=== PATIENT | female | born 2005 | race Hispanic/Latino ===

== ENCOUNTER 2023-05-30 21:14 | Emergency (ER) | payer OTHER, SELFPAY ==
[2023-05-30 21:57] VITALS: BP 128/78; PULSE 78; RESP 15; TEMP 36.8; O2SAT 100
== END 2023-05-30 22:00 | disposition left against medical advice (07) ==
DX: Z53.21 Procedure and treatment not carried out due to patient leaving prior to being seen by health care provider (principal)
CPT/HCPCS: 99199

== ENCOUNTER 2024-03-06 16:51 | Emergency (ER) | payer OTHER, SELFPAY ==
--- NOTE | 2024-03-06 17:06 | ED.FEMALEGU ---
HPI - Female Genitourinary General Stated complaint: urinary issue Time Seen by Provider: 03/06/24 16:58 Source: patient and RN notes reviewed Mode of arrival: ambulatory Limitations: no limitations History of Present Illness HPI Narrative: 18 y/o () female presented for c/o mid lower abdominal cramping for about 2 weeks. Pt is 18 weeks gestation. Pain is sharp and intermittent, can last a few minutes. Unrelieved with walking or laying down. States she contacted her OB today who advised evaluation, but she had to wait until she left work. Pt has not noticed movement yet. Pt denies vaginal bleeding, hematuria, vomiting, flank pain, constipation, diarrhea, fevers or chills. Reports last US was 01/2024. Related Data Allergies Allergy/AdvReac Type Severity Reaction Status Date / Time No Known Allergies Allergy Verified 05/30/23 21:59 Review of Systems Review of Systems: CONSTITUTIONAL: Denies body aches, fever, chills, or sweats. CARDIOVASCULAR: Denies chest pain, palpitations, or edema. RESPIRATORY: Denies cough or dyspnea. GASTROINTESTINAL: Denies abdominal pain, nausea, vomiting, or diarrhea. GENITOURINARY: reports mid lower abdominal cramping in ; denies dysuria, frequency, urgency, hematuria, flank pain SKIN: Denies rash, itching, or wounds. MUSCULOSKELETAL: Denies back pain or myalgia. PMFSH Comments At time of signature, I have reviewed and agree with nursing past medical, surgical, social and family history unless otherwise noted. Please see nursing chart for further information. There is no relevant family history pertinent to the presenting complaint Exam Narrative: GENERAL: Well-appearing and in no acute distress. ENT: Mucous membranes pink and moist. CHEST: No respiratory distress. Clear to auscultation. HEART: Regular rate and rhythm. ABDOMEN: Soft, nontender, nondistended, gravid normal active bowel sounds. heart tones 130. SKIN: Warm, dry NEURO: No focal deficits. Alert and oriented x3. Gait steady. PSYCH: Normal affect. Course Course Emergency Course: Patient is aware of diagnosis, understands and agrees to treatment plan. Anticipatory guidance given. Patient agrees to follow-up as directed and is aware of reasons to seek care at the emergency department. Portions of this record may have been created with voice recognition software Level of Care: Express Care Visit Vital Signs Vital signs: Reviewed Transfer Transfered to: [facility] Transportation: Other ( Private vehicle) Transfer rationale: Pt is agreeable to transfer. Requests transfer to [facility] via private vehicle. Risks of transportation reviewed with pt including injury, worsening of condition and . v/u. Report called to hospital, spoke with Sarai Hall PA-C, accepting physician. Pt is in stable condition at time of transfer. Advised to remain NPO and go directly to the hospital. MDM - Female Genitourinary MDM Narrative Medical decision making narrative: Pt 18weeks gestation with mid lower abdominal cramping; FHT noted at 130. Urine dip unremarkable. pt advised ER transfer. Differential Diagnosis Differential diagnosis: Likely urinary tract infection, vaginitis, cystitis and other (threatened ) Discharge Plan Discharge Clinical Impression: Abdominal pain during Qualifiers: Trimester: second trimester Qualified Code(s): O26.892 - Other specified related conditions, second trimester Patient Disposition: Acute Care Hospital Condition: Stable Instructions: Antibiotic Form Follow-up/Referrals: PHYSICIAN,GUEST RELATIONS AGENT [Primary Care Provider] - Time of Disposition: 17:30
[2024-03-06 17:08] VITALS: BP 97/81; PULSE 77; RESP 16; TEMP 37.2; O2SAT 99
== END 2024-03-06 17:34 | disposition short-term general hospital (02) ==
PROVIDERS: Emergency Provider Nurse Practitioner Family
DX: O26.892 Other specified pregnancy related conditions, second trimester (principal); Z3A.18 18 weeks gestation of pregnancy; R10.30 Lower abdominal pain, unspecified
CPT/HCPCS: 81003; 99212; G0463

== ENCOUNTER 2024-03-06 18:13 | Emergency (ER) | payer OTHER, SELFPAY ==
[2024-03-06 18:24] VITALS: BP 107/64; PULSE 72; RESP 20; TEMP 36.3; O2SAT 98
[2024-03-06 18:48] LABS: Basophils Percent Auto 0.4 % (0.2-1.2); Eosinophils Absolute Auto 0.1 K/mm3 (0-0.3); Eosinophils Percent Auto 1.6 % (0-4.4); Hematocrit 29.5 % (37.0-47.0); Hemoglobin 10.2 g/dL (12.0-15.0); Immature Granulocyte Absolute 0.03 K/mm3 (0.00-0.031); Immature Granulocyte Percent A 0.4 % (0-0.5); Lymphocytes Absolute Auto 1.93 K/mm3 (0.9-3.2); Lymphocytes Percent Auto 23.6 % (18.3-44.2); Mean Corpuscular HGB Conc 34.6 g/dl (32-36); Mean Corpuscular Hemoglobin 32.1 pg (26-34); Mean Corpuscular Volume 92.8 fl (80-100); Mean Platelet Volume 9.6 fl (7.4-10.4); Monocytes Absolute Auto 0.4 K/mm3 (0.1-0.6); Monocytes Percent Auto 4.9 % (2.6-8.5); Neutrophils Absolute Auto 5.7 K/mm3 (1.3-6.7); Neutrophils Percent Auto 69.1 % (45.5-73.1); Platelet Count Result 266 k/mm3 (150-375); Red Blood Count 3.18 M/mm3 (4.2-5.4); Red Cell Distribution Width 12.2 % (11.5-14.5); White Blood Count 8.2 K/mm3 (4.5-10.0)
[2024-03-06 19:02] LABS: Appearance Urine Clear (Clear); Bilirubin Urine Negative (Negative); Blood Urine Negative (Negative); Color Urine Yellow (Yellow); Glucose Urine UA Negative (Negative); Ketones Urine Negative (Negative); Leukocyte Esterase Ur Negative LEU/UL (Negative); Nitrate Urine Negative (Negative); Protein Urine Negative (Negative); Urobilinogen Urine 0.2 mg/dL (<2.0); pH Urine 6.5 (5.0-9.0)
[2024-03-06 19:03] LABS: Add Urine Microscopic? NO; Alanine Aminotransferase 12 U/L (6-35); Albumin Level 3.8 g/dL (3.5-5.1); Alkaline Phosphatase 64 U/L (38-126); Anion Gap 9 mmol/L (4-12); Aspartate Amino Transferase 21 U/L (14-36); Bilirubin,Total 0.3 mg/dL (0.2-1.3); Blood Urea Nitrogen 4 mg/dL (7-17); Calcium 8.8 mg/dL (8.4-10.2); Carbon Dioxide 22 mmol/L (22-30); Chloride 106 mmol/L (98-107); Estimated CRCL calculation 169 ml/min; Estimated Glomerular Filt Rate > 60; Glucose 79 mg/dL (65-110); Lipase 63 U/L (23-300); Potassium 3.4 mmol/L (3.4-5.0); Sodium 137 mmol/L (137-145)
[2024-03-06] MEDS: SODIUM CHLORIDE 0.9% IV 1,000 ML 999 ML IV CONT (19:59)
[2024-03-06] MEDS: ACETAMINOPHEN 500 MG TABLET 1000 MG PO (20:04)
--- NOTE | 2024-03-06 20:11 | ED.ABDPAIN ---
HPI - Abdominal Pain General Chief Complaint: Abdominal Pain Stated Complaint: abd Time Seen by Provider: 03/06/24 19:37 Source: patient Mode of arrival: ambulatory Limitations: no limitations History of Present Illness HPI narrative: This is a 18-year-old female, about 18 weeks , that presents to the emergency department for lower abdominal/pelvic pain. Ongoing over the last 2 weeks. Reports the pain is intermittent and sharp in nature. She has not been taking anything for pain. She feels better when she is up and moving around. Denies any associated symptoms. No vaginal bleeding. Denies fevers, vomiting, diarrhea, dysuria, or hematuria. Related Data Allergies Allergy/AdvReac Type Severity Reaction Status Date / Time No Known Allergies Allergy Verified 03/06/24 18:28 Review of Systems Review of Systems: CONSTITUTIONAL: Denies fever GASTROINTESTINAL: Reports abdominal pain. Denies nausea, vomiting, or diarrhea. GENITOURINARY: Denies dysuria or hematuria. All systems reviewed & are unremarkable except as noted in HPI and below PMFSH Past Medical History Medical History (Updated 03/06/24 @ 20:26 by Mary Carroll PA-C) No active medical problems Social History Social History (Updated 03/06/24 @ 20:26 by Mary Carroll PA-C) Smoking status: Never smoker Exam Narrative: GENERAL: Well-appearing, well-nourished, and in no acute distress. HEAD: Normocephalic, atraumatic. EYES: EOMI. CHEST: Clear to auscultation. No respiratory distress. No wheezes rales or rhonchi HEART: Regular rate and rhythm. No murmur heard. Normal peripheral pulses. ABDOMEN: Gravid, nontender, nondistended, normal active bowel sounds. EXTREMITIES: Normal range of motion. No edema. SKIN: Warm, dry, no rash. NEURO: No focal deficits. Alert and oriented x3. PSYCH: Normal mood and affect Procedures Other Procedure Procedure 1: Other Procedure: Bedside ultrasound show a activity with appropriate cardiac motion Course Course Emergency Course: patient updated on her workup and agrees with plan of care Consultations Consultation #1: Spoke with patient's OB about her presentation and workup. Agrees with further outpatient follow-up Date: 03/06/24 Vital Signs Vital signs: Vital Signs Temperature 97.4 F L 03/06/24 18:24 Pulse Rate 72 03/06/24 18:24 Respiratory Rate 20 03/06/24 18:24 Blood Pressure 107/64 03/06/24 18:24 Pulse Oximetry 98 03/06/24 18:24 Temperature 97.4 F L 03/06/24 18:24 Pulse Rate 72 03/06/24 18:24 Respiratory Rate 20 03/06/24 18:24 Blood Pressure 107/64 03/06/24 18:24 Pulse Oximetry 98 03/06/24 18:24 MDM - Abdominal Pain MDM Narrative Medical decision making narrative: patient presents to the emergency department for lower abdominal pain. Ongoing over the last couple of weeks. Currently 18 weeks with her 1st . She has had routine OB follow-up. She is afebrile and nontoxic appearing. Her vitals are stable. Cbc without leukocytosis. Shows normocytic anemia hemoglobin of 10.2. Metabolic panel and lipase without concerning findings. UA without evidence of infection. Bedside ultrasound show a activity with appropriate cardiac motion. Spoke with patient's OB about her presentation and workup. Agrees with further outpatient follow-up. Instructed to take Tylenol as needed for pain. She was given warnings to return to the ER Differential Diagnosis Differential diagnosis: Likely constipation and other (round ligament pain, UTI) Lab Data Attestation: I reviewed the patient's lab results. 03/06/24 18:36 03/06/24 18:36 Labs: Lab Results 03/06/24 Range/Units 18:36 WBC 8.2 (4.5-10.0) K/mm3 RBC 3.18 L (4.2-5.4) M/mm3 Hgb 10.2 L (12.0-15.0) g/dL Hct 29.5 L (37.0-47.0) % MCV 92.8 (80-100) fl MCH 32.1 (26-34) pg MCHC 34.6 (32-36) g/dl RDW 12.2 (11.5-14.5)
== END 2024-03-06 21:17 | disposition home or self-care (01) ==
PROVIDERS: Emergency Medicine; Emergency Provider Physician Assistant; PCP Obstetrics & Gynecology
DX: O99.012 Anemia complicating pregnancy, second trimester (principal); D64.9 Anemia, unspecified; O26.892 Other specified pregnancy related conditions, second trimester; R10.2 Pelvic and perineal pain; Z3A.18 18 weeks gestation of pregnancy
CPT/HCPCS: 36415; 80053; 81003; 81025; 83690; 84702; 85025; 96360; 99283; A9270; J7030

== ENCOUNTER 2024-08-03 22:05 | Inpatient (IN) | payer OTHER, SELFPAY ==
[2024-08-04] VITALS (143 sets, daily range): BP systolic 95–136; BP diastolic 47–85; PULSE 66–130; RESP 16–18; TEMP 36.4–37.9; O2SAT 96–100; BMI 33.6
[2024-08-04 00:52] LABS: Basophils Percent Auto 0.3 % (0.2-1.2); Eosinophils Absolute Auto 0.1 K/mm3 (0-0.3); Eosinophils Percent Auto 0.6 % (0-4.4); Hematocrit 35.2 % (37.0-47.0); Hemoglobin 12.3 g/dL (12.0-15.0); Immature Granulocyte Absolute 0.06 K/mm3 (0.00-0.031); Immature Granulocyte Percent A 0.4 % (0-0.5); Lymphocytes Absolute Auto 1.52 K/mm3 (0.9-3.2); Lymphocytes Percent Auto 11.3 % (18.3-44.2); Mean Corpuscular HGB Conc 34.9 g/dl (32-36); Mean Corpuscular Hemoglobin 31.1 pg (26-34); Mean Corpuscular Volume 88.9 fl (80-100); Mean Platelet Volume 10.4 fl (7.4-10.4); Monocytes Absolute Auto 0.6 K/mm3 (0.1-0.6); Monocytes Percent Auto 4.3 % (2.6-8.5); Neutrophils Absolute Auto 11.2 K/mm3 (1.3-6.7); Neutrophils Percent Auto 83.1 % (45.5-73.1); Platelet Count Result 283 k/mm3 (150-375); Red Blood Count 3.96 M/mm3 (4.2-5.4); Red Cell Distribution Width 12.7 % (11.5-14.5); White Blood Count 13.5 K/mm3 (4.5-10.0)
[2024-08-04 01:29] LABS: Rapid Plasma Reagin Non-Reactive (NonReactive)
--- NOTE | 2024-08-04 02:13 | LDADM ---
This patient, Neeru Pino, was admitted to Labor/Delivery/Recovery 105 on 08/03/24 at 22:05. Plans for labor, pain management and were discussed with patient. Patient/family oriented to hospital policies and general routines including ID bracelet, bed and alarms, visiting hours, pain management, procedures, bathroom and other care routines, personal items, smoking policy, room service/diet and guest tray routines, security routines, and visiting hours. Patient/Family are encouraged to report perceived risks to care and to ask questions if they do not understand what they are told or what they should do. See OBIX for further documentation.
[2024-08-04 02:15] LABS: HIV 1/2 Ab P24 Ag Result Negative (Negative)
[2024-08-04] MEDS: LACTATED RINGERS 1,000 ML 125 ML IV CONT ×2 (02:56→10:01)
--- NOTE | 2024-08-04 05:05 | WPDANESEPP ---
Anes - Eval Pre Procedure Procedure: Labor epidural Date/Time: 08/04/24 05:05 Surgeon: Rob Preop Diagnosis: Abdominal pain with contractions Pre Op Diagnosis: contractions Patient Data Age: 18 Gender: F Height: 1.6 m Weight: 86.2 kg Last Vital Signs Temp 98.7 F 08/04/24 02:52 Pulse 100 08/04/24 04:11 BP 123/76 08/04/24 04:11 Allergies Allergy/AdvReac Type Severity Reaction Status Date / Time No Known Allergies Allergy Verified 08/04/24 01:32 Home Medications Medication Instructions Recorded Confirmed Type vit no.95-ferrous 1 tablet PO DAILY 08/04/24 08/04/24 History fumarate 28 mg-folic acid 800 mcg tablet () Laboratory Tests 08/04/24 00:46 WBC 13.5 H K/mm3 (4.5-10.0) RBC 3.96 L M/mm3 (4.2-5.4) Hgb 12.3 g/dL (12.0-15.0) Hct 35.2 L % (37.0-47.0) MCV 88.9 fl (80-100) MCH 31.1 pg (26-34) MCHC 34.9 g/dl (32-36) RDW 12.7 % (11.5-14.5) Plt Count 283 k/mm3 (150-375) MPV 10.4 fl (7.4-10.4) Immature Gran % (Auto) 0.4 % (0-0.5) Neut % (Auto) 83.1 H % (45.5-73.1) Lymph % (Auto) 11.3 L % (18.3-44.2) Snyder % (Auto) 4.3 % (2.6-8.5) Eos % (Auto) 0.6 % (0-4.4) Baso % (Auto) 0.3 % (0.2-1.2) Lymph # (Auto) 1.52 K/mm3 (0.9-3.2) Snyder # (Auto) 0.6 K/mm3 (0.1-0.6) Eos # (Auto) 0.1 K/mm3 (0-0.3) Baso # (Auto) 0.0 K/mm3 (0.0-0.1) Abs Immat Gran (auto) 0.06 H K/mm3 (0.00-0.031) Absolute Neuts (auto) 11.2 H K/mm3 (1.3-6.7) Absolute Nucleated RBC 0.000 K/mm3 (0.0-0.012) Nucleated RBC % 0.0 % (0.0-0.2) RPR Non-reactive (NonReactive) HIV 1&2 Ab/P24 Ag 4thGn Negative (Negative) Blood Type O Positive Antibody Screen Negative : gestational age HCG: positive Patient hx anesthesia problems: none Family hx anesthesia problems: none Results Review: All pre-operative results and documents have been reviewed as part of the pre-operative evaluation. [facility] Past Medical History Medical History (Updated 08/04/24 @ 05:05 by Kris Sierra Jr., CRNA) No active medical problems Obesity Family History Family History Other No pertinent family history Social History Social History Smoking status: Never smoker Second hand tobacco smoke exposure: No Substance use: never Do You Feel Safe in your Home?: Yes Lack of Transportation: No Lack of Food: Never True Current Housing: I Have Housing Concerned About Future Housing: No Difficulty Paying Gas/Electric Bills: No Difficulty Paying for Meds: No Currently Unemployed: No Education: High School Diploma/GED Difficulty w/ Childcare or Family Care: No Spiritual care concerns: No Exam Day of Procedure 08/04/24 05:05 Patient weight: obese Lungs: clear to auscultation Neurological: alert and oriented
[2024-08-04] MEDS: OXYTOCIN 30 UNITS/NS 500 ML 30 UNITS/500 ML BAG IV CONT (08:09)
--- NOTE | 2024-08-04 08:25 | WPDOBADMIT ---
Obstetrics - Admit Note Admission Note: record reviewed. No pertinent additions to the history and/or any subsequent changes in the physical findings that are not consistent with the expected course of the were found. Additions to the history and/or subsequent changes in the physical findings follow. admit in labor, SVE 7/100/-1 AROM moderate amount of clear, odorless fluid, anticipate vaginal delivery
--- NOTE | 2024-08-04 11:51 | PM.OBPRVD ---
OB - Vaginal Delivery Note Procedure Delivery date: 08/04/24 Induction method: None Delivery augmentation: Rupture of Membranes Delivery monitor: External FHT and Internal Uterine Route of delivery: Episiotomy description: None Laceration Description: Perineal - 1st Degree Delivery repair: vicryl Specimen: Yes Quantitative Blood Loss (ml): 100 Anesthesia type: Epidural Disposition: Floor Complications: No immediate complications Baby Date of : 08/04/24 Time of : 11:35 Gestational Age by Date: 39 gender: Female Weight (pounds): 5 Weight (ounces): 15 presentation: vertex position: Left Occiput Anterior Placenta delivery description: Spontaneous Cord Vessel Description: 3 Vessels, Clamped/Cut and Delayed Cord Clamping score one minute: 9 score five minutes: 9 Narrative: mother and baby skin to skin in stable condition
[2024-08-04] MEDS: ceFAZolin 2 GM/D5W 50 ML 2 GM/50 ML BAG IVPB (12:01)
[2024-08-04] MEDS: OXYTOCIN 30 UNITS/NS 500 ML 30 UNITS/500 ML BAG 125 UNITS IV CONT (12:01)
[2024-08-04] MEDS: ACETAMINOPHEN 325 MG TABLET 650 MG PO (13:12)
[2024-08-04] MEDS: WITCH HAZEL 40 PADS 1 PAD TOPICAL (13:13)
[2024-08-04] MEDS: BENZOCAINE 20% AER SPR (*SP) 56 GM CAN 1 SPRAY TOPICAL (13:13)
[2024-08-04] MEDS: IBUPROFEN 600 MG TABLET PO (13:13)
--- NOTE | 2024-08-04 14:03 | PC.NURSE ---
Patient transferred to post room #290 via wheelchair. Support person present. Oriented to unit, room, information board, rooming in, admission packet and security measures. Patient verbalizes understanding.
[2024-08-05] MEDS: BENZOCAINE/MENTHOL (*BKC) 18 EA LOZENGE 1 LOZENGE PO (03:32)
[2024-08-05] MEDS: IBUPROFEN 600 MG TABLET PO ×4 (04:36→22:13)
[2024-08-05 04:46] VITALS: BP 100/65; PULSE 88; RESP 18; TEMP 36.5
[2024-08-05 04:48] LABS: Hematocrit 28.4 % (37.0-47.0); Hemoglobin 9.8 g/dL (12.0-15.0)
[2024-08-05 06:30] VITALS: BP 100/69; PULSE 76; RESP 18; TEMP 36.4
--- NOTE | 2024-08-05 09:04 | PM.OBPNVD ---
OB - PN: Subj Subjective Date/time seen: 08/05/24 09:04 Patient comments: no complaints, pain well controlled, incisional pain, tolerating diet and flatus present OB - PN: Obj Data Labs 08/05/24 04:28 Labs: Laboratory Results - last 24 hr 08/05/24 04:28 Hgb 9.8 L Hct 28.4 L OB - PN A/P Plan day: 1 Plan: routine care Comments: No problems, routine care Time Spent With Patient Time: Total time spent is greater than 50% in coordination of care (as documented) at patient's floor/unit and/or counseling patient: Exam Const: General: comfortable, no acute distress and alert Resp: Effort & Inspection: normal respiratory effort Auscultation: no crackles, no rales and no rhonchi Cardio: Rate: regular rate Heart sounds: no click, no murmurs and no rubs GI: Inspection: non-distended GI Palp: No Tenderness to palpation present (GI) Auscultation: normal bowel sounds Other: Incision - CDI Extrem: General: normal to inspection, no pedal edema and no calf tenderness
[2024-08-05] MEDS: DOCUSATE SODIUM 100 MG CAPSULE PO ×2 (10:18→17:16)
[2024-08-05] MEDS: POLYSACCHARIDE IRON COMPLEX 150 MG CAPSULE PO ×2 (10:18→17:15)
[2024-08-05 19:53] VITALS: BP 114/67; PULSE 79; RESP 18; TEMP 36.9; O2SAT 100
[2024-08-05] MEDS: ACETAMINOPHEN 325 MG TABLET 650 MG PO (22:13)
[2024-08-06] MEDS: IBUPROFEN 600 MG TABLET PO (04:01)
[2024-08-06] MEDS: ACETAMINOPHEN 325 MG TABLET 650 MG PO (04:01)
[2024-08-06 07:35] VITALS: BP 109/72; PULSE 72; RESP 18; TEMP 36.4; O2SAT 99
--- NOTE | 2024-08-06 08:08 | PM.OBPNVD ---
OB - PN: Subj Subjective Date/time seen: 08/06/24 08:08 Interval history: pp day 2 doing well desires d/c home OB - PN: Obj Data Labs 08/05/24 04:28 OB - PN A/P Plan day: 2 Plan: routine care and discharge home Time Spent With Patient Time: Total time spent is greater than 50% in coordination of care (as documented) at patient's floor/unit and/or counseling patient: Review of Systems Review of Systems: All systems reviewed & are unremarkable except as noted in HPI and below Exam Const: General: cooperative, healthy appearing and comfortable Resp: Effort & Inspection: normal respiratory effort Cardio: Rate: regular rate Skin: General skin exam: normal color Neuro: General: patient oriented x3
--- NOTE | 2024-08-06 08:09 | P.DS_ITS ---
DS: Admitting Diagnosis Discharge Date 08/06/24 Admitting Diagnosis labor DS: Discharge Diagnosis Discharge Diagnosis (1) Vaginal delivery: Code(s): O80 - Encounter for full-term uncomplicated delivery Status: Acute OB - DS: Summary OB Procedures : None OB Procedures Intrapartum: Spontaneous Vag Delivery OB Procedures: : None Peripartum Data Laceration Description: Perineal - 1st Degree Episiotomy description: None Time Spent with Patient Time attestation: Total time spent providing and/or coordinating discharge services: DS: Data Data Completed and Pending Pending studies at discharge: Pending at discharge 08/04/24 12:06 Surgical [PTH] Routine Discharge Plan Discharge Attending physician on discharge: Alhaji Rivas Discharging Clinician: Ivory Collins Patient Disposition: Home, Self-Care Activity: pelvic rest Diet: regular Patient Instructions: Antibiotic Form Stand Alone Forms: General Discharge Information Follow-up/Referrals: Ivory Collins, CNM [Certified Nurse Auditor Medical Claims] - 4 Weeks Discharge Medications: New ibuprofen 600 mg Tablet 600 mg PO Q6H PRN (Reason: Cramping) Qty: 30 0RF Continued PNV cmb#95-ferrous fumarate-FA [] 28 mg iron- 800 mcg Tablet 1 tablet PO DAILY Date of admission: 08/03/24 22:05 Primary Care Provider: Barrera Maravilla Admitting Provider: Alhaji Rivas Attending physician on admission: Ivory Collins Condition: Stable
--- NOTE | 2024-08-06 08:47 | PC.NURSE ---
[id number] Previously mother had expressed that she only wanted to bottle feed formula but has changed her mind and would like to use a breast pump and bottle feed both pumped breast milk and/or formula. Mother has her own breast pump at home that her insurance paid for and wishes to use it when she goes home later this morning. Instructions were given on cleaning, care, usage, that there should be no pain, pumping schedule for milk production, collection, and storage of human milk. Patient was assessed for correct placement, flange size (both nipples measured 20mm), to pump for comfort and nipple stretching/stimulation for adequate milk production every 3 hours (8 times in 24 hours) 1-2 times at night. Parents are encouraged to record the pumping schedule on the feeding sheet.?Mother voiced understanding of the education shared along with mom/baby guide and the pump measurement, flange fit handout for additional resource information (Handouts included: Pumping Primer, Common Issues, Breast Milk Storage Guidelines and How to keep your Breast Pump Clean). RN encouraged mother to read through her instructions for her breast pump that she has at home and to make sure she has the proper flange size. [facility] referral faxed to [place] [facility]. Reported to the Primary RN.
[2024-08-06] MEDS: POLYSACCHARIDE IRON COMPLEX 150 MG CAPSULE PO ×2 (08:59)
[2024-08-06] MEDS: INFLUENZA TRIVALENT VACCINE 45 MCG/0.5 ML SYRINGE IM (10:50)
[2024-08-07 10:26] VITALS: BP 102/66; PULSE 89; RESP 18; TEMP 36.8; O2SAT 100
--- NOTE | 2024-08-07 10:45 | PC.NURSE ---
Follow up RN called regarding patient needing assistance with her breast pump. She has a Motif pump and she was sanitizing it this morning. She was missing some pieces and didn't bring her user manual. We were able to find enough pieces to put together one full side. Reviewed with mother the settings, how to use the massage mode until the milk flows and then to switch to the expression mode. Advised she pump regularly (at feeding times) for about 15 minutes. She feels full like her milk is in but has not been or pumping. Encouraged consistency for maximal milk production. Reinforced the supply and demand nature of breast milk production. Patient verbalized understanding and will reference her user manual for additional resource. Encouraged patient to call the office for additional questions or appointment needs. Patient agrees and will call if needed.
== END 2024-08-06 11:56 | disposition home or self-care (01) | DRG 560 ==
LOC: ANHLDR 08-04 01:05 → ANHOB2 08-06 08:09 → ANHLDR 08-08 10:31 → ANHOB2 08-08 10:31
PROVIDERS: Advanced Practice Midwife; Admitting Provider Obstetrics & Gynecology; PCP Obstetrics & Gynecology; Visit Provider Obstetrics & Gynecology
DX: O70.0 First degree perineal laceration during delivery (principal); Z37.0 Single live birth; Z3A.39 39 weeks gestation of pregnancy; Z23 Encounter for immunization
CPT/HCPCS: 36415; 85014; 85018; 85025; 86592; 86703; 86850; 86900; 86901; 88307; 90471; 90656; A9270; G0008; G0432; J0690; J2590; J2795; J7120

== ENCOUNTER 2024-09-16 19:54 | Emergency (ER) | payer SELFPAY ==
[2024-09-16 20:03] VITALS: BP 113/61; PULSE 103; RESP 16; TEMP 36.1; O2SAT 99
--- NOTE | 2024-09-16 20:03 | ED.FEMALEGU ---
HPI - Female Genitourinary General Chief complaint: Urogenital-Female Stated complaint: uti symptoms Source: patient, RN notes reviewed and old records reviewed Mode of arrival: ambulatory Limitations: no limitations History of Present Illness HPI Narrative: Patient is 6 weeks presents with complaints of painful lesions to the genitals. She reports that she noted yesterday. Reports pain is more intense with urination. She voices no other concerns or complaints today Related Data Home Medications ?Medication ?Instructions ?Recorded ?Confirmed ?Last Taken ?Type vit no.95-ferrous 1 tablet PO DAILY 08/04/24 09/16/24 08/03/24 History fumarate 28 mg-folic acid 800 mcg 1 tablet tablet () ferrous sulfate 325 mg (65 mg 325 mg PO DAILY 09/16/24 09/16/24 Unknown History iron) tablet (FeroSul) metronidazole 500 mg tablet 500 mg PO Q12H 09/16/24 09/16/24 Unknown History Allergies Allergy/AdvReac Type Severity Reaction Status Date / Time No Known Allergies Allergy Verified 09/16/24 19:55 Review of Systems Review of Systems: All systems reviewed & are unremarkable except as noted in HPI and below Constitutional: Constitutional: Reports no additional constitutional complaints ENT: Reports system reviewed and no additional complaints, except as documented Cardiovascular: Cardiovascular: Reports no additional cardiovascular complaints Respiratory: Respiratory: Reports no additional respiratory complaints Gastrointestinal: Gastrointestinal: Reports no additional gastrointestinal complaints Genitourinary: Genitourinary: Reports no additional female genitourinary complaints, Reports as per HPI, Reports genital lesions and Reports other [facility] Past Medical History Medical History (Updated 09/17/24 @ 00:00 by Severiano Romero) Obesity No active medical problems Family History Family History Other No pertinent family history Social History Social History Smoking status: Never smoker Second hand tobacco smoke exposure: No Substance use: never Do You Feel Safe in your Home?: Yes Lack of Transportation: No Lack of Food: Never True Current Housing: I Have Housing Concerned About Future Housing: No Difficulty Paying Gas/Electric Bills: No Difficulty Paying for Meds: No Currently Unemployed: No Education: High School Diploma/GED Difficulty w/ Childcare or Family Care: No Spiritual care concerns: No Comments At the time of my signature, I reviewed and agree with the nursing past medical, surgical, social, and family history. There is no relevant family history pertinent to the patient complaint. Exam Const: General: cooperative, no acute distress, alert and awake Orientation/consciousness: oriented to person, oriented to place and oriented to time HENMT: Head: normal to inspection Resp: Effort & Inspection: normal respiratory effort and able to speak in complete sentences Auscultation: clear to auscultation bilaterally, no crackles, no rales, no rhonchi and no wheezes Cardio: Palpation: normal PMI Rate: regular rate Rhythm: regular rhythm Heart sounds: S1 normal heart sound present and S2 normal heart sound present : External Female Exam: lesion (Multiple vesicles) Neuro: General: oriented to person, oriented to place and oriented to time Cranial nerves: Yes CN's II-XII intact bilaterally Psych: Appearance: grossly normal Thought process: Normal thought process present Insight: Good insight present (Psych) Judgement: Good judgement present (Psych) Course Course Level of Care: Express Care Visit Vital Signs Vital signs: Vital Signs Temperature 97.0 F L 09/16/24 20:03 Pulse Rate 103 H 09/16/24 20:03 Respiratory Rate 16 09/16/24 20:03 Blood Pressure 113/61 09/16/24 20:03 Pulse Oximetry 99 09/16/24 20:03 Oxygen Delivery Room Air 09/16/24 20:03 Temperature 97.0 F L 09/16/24 20:03 Pulse Rate 103 H 09/16/24 20:03 Respiratory Rate 16 09/16/24 20:03 Blood Pressure 113/61 09/16/24 20:03 Pulse Oximetry 99 09/16/24 20:03 Oxygen Delivery Room Air 09/16/24 20:03 Reviewed MDM - Female Genitourinary MDM Narrative Medical decision making narrative: Lesions consistent with herpes genitalis. Treatment began, viral swab sent. Discharge instructions reviewed with patient, as well as provided in writing per nursing staff. The instructions also include specific and strict return/GO TO THE ER as well as f/u information. All questions have been answered, and the patient deny any further questions with discharge and discharge plan. Some parts of this dictation were generated by voice recognition software and may contain typographical and/or grammatical inaccuracies. Differential Diagnosis Differential diagnosis: Likely other (Syphilis) Medical Records Attestation: I reviewed the patient's medical records. Lab Data Labs: Lab Results 09/16/24 Range/Units 20:10 Herpes Virus Source Pending Herpes Simplex Culture Pending Discharge Plan Discharge Clinical Impression: Herpes genitalis Patient Disposition: Home, Self-Care Condition: Stable Instructions: Antibiotic Form, Genital Herpes Infection (ED) Additional Instructions: Take medications as prescribed. Follow-up with primary care provider. Emergency department for new or worse symptoms. Do not engage in sexual activity until the lesions have healed. It is very important follow-up with your OBGYN Patient Language: Tajik Prescriptions: New valacyclovir [Valtrex] 1 gram tablet 1,000 mg PO Q12H Qty: 20 0RF valacyclovir [Valtrex] 1 gram tablet 1,000 mg PO Q12H Qty: 20 0RF No Action ferrous sulfate [FeroSul] 325 mg (65 mg iron) tablet 325 mg PO DAILY metronidazole 500 mg tablet 500 mg PO Q12H PNV cmb#95-ferrous fumarate-FA [] 28 mg iron- 800 mcg Tablet 1 tablet PO DAILY ibuprofen 600 mg Tablet 600 mg PO Q6H PRN (Reason: Cramping) Qty: 30 0RF Follow-up/Referrals: PHYSICIAN,CHEMICAL INSTRUMENTATION OFFICER [Primary Care Provider] - Time of Disposition: 20:13
[2024-09-21 02:09] LABS: Source VULVA
== END 2024-09-16 20:21 | disposition home or self-care (01) ==
PROVIDERS: Emergency Provider Nurse Practitioner Family
DX: B00.9 Herpesviral infection, unspecified (principal)
CPT/HCPCS: 87140; 87255; 99213; G0463

== ENCOUNTER 2025-09-14 05:09 | Emergency (ER) | payer OTHER, SELFPAY ==
--- NOTE | ~2025-09-14 | US_ITS ---
EXAMINATION: US OB <=14 wk fetus w TV DATE: 09/14/2025 07:59 INDICATION: Vaginal bleeding and cramping. Positive urine test status post recent termination 2 months prior. TECHNIQUE: Real-time pelvic ultrasound utilizing both a transvaginal and transabdominal probe was performed. The interpreting radiologist was not present for the study. COMPARISON: None. FINDINGS: The uterus measures 7.2 x 4.2 x 3.9 cm. The endometrial complex measures 1.3 cm in thickness with heterogeneous echogenicity including very small collections of anechoic fluid likely within the endometrial canal at the uterine fundus, the largest measuring 5 mm in maximal diameter. The fluid collections demonstrate irregular margins without deciduous sign or evident internal yolk sac or pole to suggest a gestational sac. The right ovary measures 3.7 x 2.0 x 1.6 cm. The left ovary measures 2.6 x 2.6 x 2.0 cm. Vascular flow identified in both ovaries on color Doppler. No other abnormal adnexal masses identified. There is small amount of anechoic free fluid in the pelvis. IMPRESSION: 1. Heterogeneous 1.3 cm thick endometrial complex without evident intrauterine gestational sac. The setting of a positive test the differential would include early, failed or non visualized ectopic . Recommend follow-up with serial beta-hCG levels with repeat imaging as clinically indicated. Reviewed, dictated and finalized at location A. RIALS PLANNING ANALYST IMPRESSION: 1. Heterogeneous 1.3 cm thick endometrial complex without evident intrauterine gestational sac. The setting of a positive test the differential woul d include early, failed or non visualized ectopic . Recommend follow-u p with serial beta-hCG levels with repeat imaging as clinically indicated.
--- OUTSIDE RECORDS SUMMARY | 2025-09-14 05:12 | XMS_ITS | Data Portability ---
Author Organization [facility] Address [address] [place] [address] Assessment Encounter Date Assessment Date Assessment LastModified by Organization Details LastModified Time 07/18/2024 07/18/2024 Patient is ___weeks . Discussed plan. [email or web address] Not available 07/18/2024 15:17:35 07/25/2024 07/25/2024 Patient is ___weeks . Discussed plan. [email or web address] Not available 07/25/2024 14:12:38 08/01/2024 08/01/2024 Patient is __39_weeks . Discussed plan. [email or web address] Not available 08/01/2024 14:05:27 Plan of Treatment Reminders Order Date Submit Date Provider Last Modified By Organization Details Last Modified Time Details Appointments None recorded. Lab drug screen, urine 2023 024 [email or web address] [address], [address], [place], [address], 14:35:05 culture, urine 2023 024 [facility] (Lab), [address], [place], [address], 05:39:55 Referral None recorded. Procedures None recorded. Surgeries None recorded. Imaging US, obstetric, follow-up 2023 024 [email or web address] 4 [place], [address], [place], [address], 4 15:40:06 Medication Orders metronidazo le 500 mg tablet 2023 024 [id number], [address], [place], [place], [id number], 11:45:36 Patient TargetsNo targets recorded. Patient InstructionsNo instructions recorded. Reason for Referral None Reported. Results Created Date Observation Date Name Description Value Unit Range Abnormal Flag Note LastModifiedBy Organization Detail LastModifiedTime 07/25/20 24 07/25/2024 CULTU RE: URINE result report SEE RESULT S BELOW Test: Cultu re: Urine Speci men Sourc e: Urine - Clean Catch Speci men Type: Urine Speci men Date: 2023 1527 Resul t Date: 2023 0436 Resul t Statu s: Final resul t Abnor mal: No Resul ting Lab: [facility] [address] [facility] [facility] [address] Tel: CULTU RE ----- ----- ----- --- No growt h in 1 day (dete ction level of 10,00 0 colon ies / ml.) Not Available [facility] (Lab) [address], [place], [address], 07/27/2024 05:39:55 07/25/20 24 07/25/2024 CULTU RE: GROUP B STREP SCREE N, REFLE X SUSCE PTIBI LITY result report SEE RESULT S BELOW Test: Cultu re: Group B Strep , Refle x Susce ptibi lity ([facility]/ [facility] ) Speci men Sourc e: Vagin a/Rec terrence Speci men Type: Vagin al/Re ctal Speci men Date: 2023 1528 Resul t Date: 2023 1428 Resul t Statu s: Final resul t Abnor mal: No Resul ting Lab: [facility] [address] [facility] [address] Tel: CULTU RE ----- ----- ----- --- No Group B strep isola sachin at 2 days (betsy ctive broth enhan cemen t) Not Available [facility] (Lab) [address], [place], [address], 07/28/2024 15:31:42 07/25/20 24 07/25/2024 drug scree n, urine Amphetamines : negati ve Not Available [facility] [address], [place], [address], 07/25/2024 14:33:18 07/25/20 24 07/25/2024 drug scree n, urine Cannabinoids : negati ve Not Available [facility] [address], [place], [address], 07/25/2024 14:33:18 07/25/20 24 07/25/2024 drug scree n, urine Cocaine: negati ve Not Available [facility] [address], [place], [address], 07/25/2024 14:33:18 07/25/20 24 07/25/2024 drug scree n, urine Opiates: negati ve Not Available [facility] [address], [place], [address], 07/25/2024 14:33:18 07/25/20 24 07/25/2024 drug scree n, urine Phenocyclidi ne: negati ve Not Available [facility] [address], [place], [address], 07/25/2024 14:33:18 07/25/20 24 07/25/2024 drug scree n, urine Barbiturates : negati ve Not Available [facility] [address], [place], [address], 07/25/2024 14:33:18 07/25/20 24 07/25/2024 drug scree n, urine Benzodiazepi mona: negati ve Not Available [facility] [address], [place], [address], 07/25/2024 14:33:18 07/25/20 24 07/25/2024 drug scree n, urine Ethanol: negati ve Not Available [facility] [address], [place], [address], 07/25/2024 14:33:18 07/25/20 24 07/25/2024 drug scree n, urine Hallucinogen s: negati ve Not Available [facility] [address], [place], [address], 07/25/2024 14:33:18 07/25/20 24 07/25/2024 drug scree n, urine Inhalants: negati ve Not Available [facility] [address], [place], [address], 07/25/2024 14:33:18 07/25/20 24 07/25/2024 drug scree n, urine Anabolic Steroids: negati ve Not Available [facility] [address], [place], [address], 07/25/2024 14:33:18 07/25/20 24 07/25/2024 drug scree n, urine Other: negati ve Not Available [facility] [address], [place], [address], 07/25/2024 14:33:18 06/21/2006/21/2024 US, obste tric, follo w-up No observ ation record ed. [email or web address] [facility] [address], [place], [address], 06/21/2024 12:57:09 06/21/20 24 06/21/2024 US, obste tric, follo w-up No observ ation record ed. CEASAR [address], [place], [address], 07/25/2024 11:16:19 07/18/20 24 07/18/2024 US, obste tric, follo w-up No observ ation record ed. [email or web address] [facility] [address], [place], [address], 07/18/2024 18:07:00 07/18/20 24 07/18/2024 US, obste tric, follo w-up No observ ation record ed. [email or web address] [address], [place], [address], 07/18/2024 16:50:50 07/24/20 24 07/24/2024 US, obste tric, follo w-up No observ ation record ed. CEASAR [facility] [address], [place], [address], 07/25/2024 11:16:19 07/24/20 24 07/24/2024 US, obste tric, follo w-up No observ ation record ed. [email or web address] Not Available 2023 10:28:27 Result Notes None recorded. Problems Name Problem SNOMED Code Status Onset Date Resolution Date Notes Provider Name and Address Organization Details Recorded Time Finding of growth 570479802 Completed per [facility] normal growth REJI Joiner [address], [place], [address], [place] [facility] 4 14:17:08 Pregnanc y 30567092 Completed 202308/09/2024 Raquel jones, [facility] 4 16:18:02 Problem Notes None recorded. Medical Equipment None Reported. Allergies No known drug allergies Medications Name Sig Start Date Stop Date Status Note LastModified by Organization Details LastModified Time valacyclovi r 1 gram tablet TAKE 1 TABLET BY MOUTH EVERY 12 HOURS active Not Available Not Available No t Available metronidazo le 500 mg tablet TAKE 1 TABLET BY MOUTH EVERY 12 HOURS active Not Available Not Available No t Available ondansetron 8 mg disintegrat ing tablet DISSOLVE 1 TABLET ON THE TONGUE TWICE DAILY 07/06 completed Not Available Not Available Not Available FeroSul 325 mg (65 mg iron) tablet TAKE 1 TABLET BY MOUTH EVERY 2 DAYS active Not Available Not Available No t Available Vitals Date Recorded Body weight Body mass index (BMI) Body mass index (BMI) [Percentile] Per age and sex Body height Systolic And Diastolic Provider Name and Address Organization Details Last Updated DateTime 07/18/2024 69223.9 9608 g 33.7 kg/m2 96 % 157.48 cm 129/85 mm[Hg] [facility] 4 15:18:10 Date Recorded Body height Body mass index (BMI) Body mass index (BMI) [Percentile] Per age and sex Body weight Systolic And Diastolic Provider Name and Address Organization Details Last Updated DateTime 07/25/2024 157.48 cm 34 kg/m2 96 % 96200.1 8 g 107/71 mm[Hg] [facility] 4 14:13:22 Date Recorded Body weight Body mass index (BMI) [Percentile] Per age and sex Body mass index (BMI) Body height Systolic And Diastolic Provider Name and Address Organization Details Last Updated DateTime 08/01/2024 32132.3 6556 g 96 % 34.4 kg/m2 157.48 cm 114/62 mm[Hg] [facility] 4 14:03:51 Date Recorded Body height Body mass index (BMI) Body weight Systolic And Diastolic Provider Name and Address Organization Details Last Updated DateTime 09/14/2024 157.48 cm 32.4 kg/m2 59805.85 g 103/64 mm[Hg] [facility] 09/14/2024 11:32:53 Social History Question Answer Notes LastModified by Organizat ion Details LastModified Time Tobacco Smoking Status Unknown If Ever Smoked [facility] 05/25/2024 12:05:31 If You Are , What Was Your Level Of Alcohol Consumption Prior To ? Occasional [email or web address] Information not available 05/25/2024 Are You Blind Or Do You Have Difficulty Seeing? No [email or web address] Information not available 02/20/2024 What Is Your Level Of Caffeine Consumption? Occasional [email or web address] Information not available 05/25/2024 In The 14 Days Before Symptom Onset, Have You Had Close Contact With A Laboratory-confir med COVID-19 While That Case Was Ill? No Information not available 01/18/2024 In The 14 Days Before Symptom Onset, Have You Had Close Contact With A Person Who Is Under Investigation For COVID-19 While That Person Was Ill? No Information not available 01/18/2024 Have You Been To An Area Known To Be High Risk For COVID-19? No Information not available 01/18/2024 Are You Deaf Or Do You Have Serious Difficulty Hearing? No [email or web address] Information not available 02/20/2024 Do You Use Your Seat Belt Or Car Seat Routinely? Yes [email or web address] Information not available 02/20/2024 Do You Have Smoke And Carbon Monoxide Detectors In Your Home? Yes [email or web address] Information not available 02/20/2024 Do You Use Sunscreen Routinely? Yes [email or web address] Information not available 02/20/2024 Has Tobacco Cessation Counseling Been Provided? Yes [email or web address] Information not available 05/25/2024 On What Date Was Tobacco Cessation Counseling Provided? 08/01/2024 Information not available 08/01/2024 Do You Have Difficulty Walking Or Climbing Stairs? No [email or web address] Information not available 02/20/2024 Sex: Unknown Functional Status Question Answer Note LastModified by Organizat ion Details LastModified Time Do you use any illicit or recreational drugs? No [email or web address] Information not available 05/25/2024 What is your level of alcohol consumption? None [email or web address] Information not available 05/25/2024 Are you able to walk independently without assistance or assistive devices? YESWOREST [email or web address] Information not available 02/20/2024 Are you able to care for yourself independently? Yes [email or web address] Information not available 02/20/2024 Do you have difficulty dressing, bathing, grooming, or toileting? No [email or web address] Information not available 02/20/2024 Mental Status None recorded. Family History Relationship Description Onset Age of this Age Resolved Age Notes LastModified by Organization Details LastModified Time Father No current problems or disability [email or web address] Not available 01/17 14:29:29 Mother No current problems or disability [email or web address] Not available 01/17 14:29:29 Medical History Condition Response Allergies (Food, seasonal, environmental ) N Other N Drug/Latex Allergies/Reactions N Blood Transfusion N Breast Cancer N Dermatologic Disorders N Lung Disease N Defects or Inherited Disease N Breast Problem N Gestational Diabetes N Hematologic disorders N Anesthesia Complications N History of STI N Deep Vein Thrombosis N Polycystic ovary syndrome N Anxiety Disorder N Autoimmune disease N Arthritis N Polyps N Infertility N Acid Reflux (GERD) N History of abnormal pap N Cancer N Varicosities N Stroke N Neurologic/Epilepsy N Endometriosis N High Cholesterol N Fibromyalgia N Headaches N Kidney Disease N Heart Problems N Thyroid Problems N Kidney or Bladder Problems N GI Problems N Eating Disorder N Anemia N Art (IVF or FET) N Psychiatric Illness N Ovarian Cancer N Diabetes N Pulmonary (TB, Asthma) N Hepatitis/Liver Disease N No Past Medical History N Eczema N Urinary Tract Infection N Abuse/Domestic Violence N Asthma N Trauma/Violence N Depression/ depression N Heart Disease N Pre-Eclampsia N Hypertension N Osteoporosis N Thrombophilias N Gynecological History Statement/Question Response Date of Last Mammogram Date of LMP 11/14/2023 STIs/STDs N HPV Vaccine N Current Control Method None Date of Last Colonoscopy Most Recent Bone Density Sexually Active? Y Date of Last Pap Smear Sexual Problems? N Desired Control Method None LMP Approximate Obstetrics History GPAL:G 1 P 1 0 0 1 Type Value Full Term 1 Living 1 Total 1 Past Encounters Encounter ID Performer Location Encounter Start Date Encounter Closed Date Diagnosis/Indication Diagnosis SNOMED-CT Code Diagnosis ICD10 Code Diagnosis IMO Codes Diagnosis Note [id number] Alhaji Rivas MD [facility] [address] [address] 01/18/2024 13:06:01 01/18/2024 13:57:24 Uterine size for dates discrepancy 600151137 O26.841 Z3A.11 [id number] ANGELIKA EVANS MD [facility] [address],[place] [address] 01/18/2024 13:07:54 01/18/2024 14:58:34 Nausea and vomiting 86806991 R11.2 test positive 383063183 Z32.01 1. Exam today within normal limits.2. Ultrasound today confirms GA and viability. EDC . GC/Clamydi a testing done: will f/u as indicated. 4. ACOG guidelines and plan of care for reviewed with patient. All questions answered.5 . Return to office at 16 weeks for new OB visit6. Will order new OB labs today.7. Genetic screening: desires. [id number] Alhaji Rivas MD [facility] [address],[place] [address] 01/27/2024 14:20:32 01/27/2024 15:12:32 screening 225428766 Z36.82 Z3A.12 [id number] Alhaji Rivas MD [facility] [address],[place] [address] 02/20/2024 11:37:05 02/20/2024 16:49:02 Routine care 759615944 Z34.92 [id number] Alhaji Rivas MD [facility] [address],[place] [address] 05/03/2024 12:03:27 05/03/2024 14:00:12 screening for malformation 729400717 Z36.3 Z3A.26 [id number] Ivory Collins CNM [facility] [address],[place] [address] 05/09/2024 09:38:37 05/09/2024 10:10:35 Gestation period, 27 weeks 96492573 Z3A.27 continue vitamin [id number] Alhaji Rivas MD [facility] [address],[place] [address] 05/24/2024 09:55:06 05/24/2024 13:06:46 screening 983489258 Z36.2 Z3A.29 [id number] [facility] [address],[place] [address] 05/25/2024 11:53:17 05/25/2024 12:17:07 Gestation period, 29 weeks 22622024 Z3A.29 [facility] vitamin [id number] [facility] [address],[place] [address] 06/08/2024 12:08:53 06/08/2024 13:22:47 Gestation period, 31 weeks 78085034 Z3A.31 [id number] Alhaji Rivas MD [facility] [address],[place] [address] 06/21/2024 11:57:45 06/21/2024 12:49:33 condition affecting obstetrical care of mother 417613048 O35.00X0 Z3A.33 [id number] [facility] [address] [place] [address] 06/22/2024 11:34:00 06/22/2024 12:48:48 Gestation period, 33 weeks 36352115 Z3A.33 continue vitamin [id number] [facility] [address],[place] [address] 07/06/2024 11:47:17 07/06/2024 12:23:26 Gestation period, 35 weeks 48392704 Z3A.35 [id number] Alhaji Rivas MD [facility] [address] [place] [address] 07/18/2024 14:29:56 07/18/2024 15:29:38 Uterine size for dates discrepancy 285718689 O26.841 Z3A.37 [id number] [facility] [address] [place] [address] 07/18/2024 14:30:06 07/18/2024 16:21:09 Gestation period, 37 weeks 72554363 Z3A.37 continue daily vitamin [id number] Ivory Collins CNM [facility] [address],[place] [address] 07/25/2024 13:54:05 07/25/2024 14:25:16 Gestation period, 38 weeks 28163346 Z3A.38 continue vitamin Routine an tenatal care 993994954 Z34.93 [id number] Ivory Collins CNM [facility] [address],[place] [address] 08/01/2024 13:48:45 08/01/2024 14:55:20 Gestation period, 39 weeks 59179210 Z3A.39 continue vitamin [id number] Ivory Collins CNM [facility] [address],[place] [address] 09/14/2024 11:09:27 09/14/2024 11:59:38 care 826309164 Z39.2 doing well f/u if burning continues Bacterial vaginosis 4197 73302 N76.0 Health Concerns Section Related Observation LastModified by Organization Detai ls LastModified Time None Recorded Concern Status LastModified by Organization Details LastModified Time None Recorded Advance Directives Directive None Recorded Payers Insurance Date Sequence Insurance Name Policy Number Policy Bird Covered Member ID Bird Member ID Guarantor Name 06/23/2024 1 [place] Neeru Pino [id number] Neeru Watson beatriz 06/24/2025 1 [facility] (MEDICAID HMO) [id number] [facility] [id number] Neeru Watson beatriz 04/24/2024 1 [facility] (MEDICAID HMO) [id number] Neeru Pino [id number] Neeru Watson beatriz Notes Date Note Type Note Provider Name and Address Organization Details Recorded Time 07/18/2024 text/html Generic HPI TemplateReported by Patient Ivory Collins CNM [address], [place], [address], [facility] 07/18/2024 16:16:28 07/25/2024 text/html Generic HPI TemplateReported by Patient Kyung jones, [facility] 07/25/2024 14:35:09 08/01/2024 text/html Generic HPI TemplateReported by Patient Ivory Collins, REJI [address], [place], [address], [facility] 08/01/2024 14:45:21 09/14/2024 text/html VisitReported by PatientHPIFor associated symptoms, patient reportsvaginal dischargebut reportsno abnormal bleeding(burning on skin during urination). For quality, patient reportsnsvd. For context, patient reportscomplications of : none,complications of labor: none, complications: none,feeding choice: bottle, andresumed menstrual bleeding no. For contraception plan, patient reportsdeclines contraception.baby doing well!ROS as noted in the HPI Kyung jones, [facility] 09/14/2024 19:22:09 OBGyn Episode Ob Episode Information Episode Created Date Number of Fetuses Patient Bloodtype Patient rh Status Prepregnancy Weight lbs Domestic Partner Domestic Partner Phone Father Name Wood Chopper Status 02/20/20 24 1 O Positive CLOSED Fetus Data First Name Last Name Admitted to NICU Weight (g) Sex Living Outcome Pediatric Complications Fetus ID Race Codes Race Delivery Type 2693.20 25 F true Full Term [id number] Vaginal Delivery Problems Problem Notes MFM: 07/24 u/s and ov, 4 9am u/s and ovRecommendations: start PO iron supplementation, testing, delivery TBD. Problem Name Start Date End Date Resolution Snomed Code Not e Finding of growth [id number] per [facility] normal growth Ted Calculation Initial Ted Date Initial Exam Date Initial Exam Provider Initial Ultrasound Date Last Menstrual Period Date Ultra Sound Weeks Gestation 08/20/2024 02/20/2024 01/27/2024 11/14/2023 12 Eighteen To Twenty Week Ted Update Ultra Sound Date Fundal Height At Umbil Quickening Date Ultra Sound Latest Weeks Gestation Final Ted Confirmed By Final Ted Confirmed Date Final Ted Date Ultra Sound Latest Days Gestation 0 08/08/20 24 0 Pre- Flowsheet Flowsheet Date 02/20/2024 Jones Score Blood Edema Fundus Height Fundus Units Glucose Ketones Leukocytes Nitrite Labor Signs Protein Cervic Dilation Cervic Effacement Cervic Station Type Weight in lbs Pre/Post Dialysis Refused Weight 152.619684084534 BP Diastolic BP Location Tested BP Systolic BP Type 81 L arm 121 sitting Fetus Heart Rate Present Fetus Movement Comments this patient is a 18-year-ol d nuliparous female at 12 weeks' gestation who presents for initial care. She has a history of term vaginal births. Her medical, surgical, obstetric history is unremarkable. She is vaccinated. She was given precautions recommendations for . We talked about vaccines in . Talked about care in detail. She is having genetic testing. She had a normal 12 week ultrasound. To begin routine care. Flowsheet Date 05/03/2024 Jones Score Blood Edema Fundus Height Fundus Units Glucose Ketones Leukocytes Nitrite Labor Signs Protein Cervic Dilation Cervic Effacement Cervic Station Type Weight in lbs Pre/Post Dialysis Refused BP Diastolic BP Location Tested BP Systolic BP Type Fetus Heart Rate Present Fetus Movement Comments Flowsheet Date 05/09/2024 Jones Score Blood Edema Fundus Height Fundus Units Glucose Ketones Leukocytes Nitrite Labor Signs Protein Cervic Dilation Cervic Effacement Cervic Station none Type Weight in lbs Pre/Post Dialysis Refused 161.833998788797 BP Diastolic BP Location Tested BP Systolic BP Type 64 107 Fetus Heart Rate Present A 120 Present Fetus Movement A Yes Comments Patient is having some disch arge. reviewed anatomy scan f/u anatomy and gct in 2 weeks, precautions ans education +FM Flowsheet Date 05/24/2024 Jones Score Blood Edema Fundus Height Fundus Units Glucose Ketones Leukocytes Nitrite Labor Signs Protein Cervic Dilation Cervic Effacement Cervic Station Type Weight in lbs Pre/Post Dialysis Refused BP Diastolic BP Location Tested BP Systolic BP Type Fetus Heart Rate Present Fetus Movement Comments Flowsheet Date 05/25/2024 Jones Score Blood Edema Fundus Height Fundus Units Glucose Ketones Leukocytes Nitrite Labor Signs Protein Cervic Dilation Cervic Effacement Cervic Station none 26 cm Type Weight in lbs Pre/Post Dialysis Refused 164.93961886784 BP Diastolic BP Location Tested BP Systolic BP Type 78 111 Fetus Heart Rate Present A 145 Fetus Movement A Yes Comments Patient states that is havin g some discharge. +FM, gct today, education and precautions, discussed kick counts f/u in 2 weeks Flowsheet Date 06/08/2024 Jones Score Blood Edema Fundus Height Fundus Units Glucose Ketones Leukocytes Nitrite Labor Signs Protein Cervic Dilation Cervic Effacement Cervic Station Type Weight in lbs Pre/Post Dialysis Refused 165.171287649548 BP Diastolic BP Location Tested BP Systolic BP Type 65 99 Fetus Heart Rate Present Fetus Movement A Yes Comments doing well +FM, baby shower this ok for flu, tdap ok for rsv at 32 weeks f/u 2 weeks Flowsheet Date 06/21/2024 Jones Score Blood Edema Fundus Height Fundus Units Glucose Ketones Leukocytes Nitrite Labor Signs Protein Cervic Dilation Cervic Effacement Cervic Station Type Weight in lbs Pre/Post Dialysis Refused BP Diastolic BP Location Tested BP Systolic BP Type Fetus Heart Rate Present Fetus Movement Comments Flowsheet Date 06/22/2024 Jones Score Blood Edema Fundus Height Fundus Units Glucose Ketones Leukocytes Nitrite Labor Signs Protein Cervic Dilation Cervic Effacement Cervic Station none 34 cm Type Weight in lbs Pre/Post Dialysis Refused 173.304208498577 BP Diastolic BP Location Tested BP Systolic BP Type 69 118 Fetus Heart Rate Present A 154 Fetus Movement A Yes Comments Patient is having pain. disc ussed stretching, schedule growth 37 weeks, baby shower went well, education and precautions Flowsheet Date 07/06/2024 Jones Score Blood Edema Fundus Height Fundus Units Glucose Ketones Leukocytes Nitrite Labor Signs Protein Cervic Dilation Cervic Effacement Cervic Station none 34 cm Type Weight in lbs Pre/Post Dialysis Refused 178.797962018864 BP Diastolic BP Location Tested BP Systolic BP Type 67 107 Fetus Heart Rate Present A 156 Fetus Movement A Yes Comments Patient states that is havin g discharge. reviewed education and precautions, gbs next visit, going to a wedding this weekend. Flowsheet Date 07/18/2024 Jones Score Blood Edema Fundus Height Fundus Units Glucose Ketones Leukocytes Nitrite Labor Signs Protein Cervic Dilation Cervic Effacement Cervic Station Type Weight in lbs Pre/Post Dialysis Refused BP Diastolic BP Location Tested BP Systolic BP Type Fetus Heart Rate Present Fetus Movement Comments Flowsheet Date 07/18/2024 Jones Score Blood Edema Fundus Height Fundus Units Glucose Ketones Leukocytes Nitrite Labor Signs Protein Cervic Dilation Cervic Effacement Cervic Station none Type Weight in lbs Pre/Post Dialysis Refused 184.644277272547 BP Diastolic BP Location Tested BP Systolic BP Type 85 129 Fetus Heart Rate Present Fetus Movement A Yes Comments mfm tomorrow, +FM, doing wel l spoke with dr brianne sandoval [facility] us, precautions and education f/u one week BPD<1% Flowsheet Date 07/25/2024 Jones Score Blood Edema Fundus Height Fundus Units Glucose Ketones Leukocytes Nitrite Labor Signs Protein Cervic Dilation Cervic Effacement Cervic Station Type Weight in lbs Pre/Post Dialysis Refused Weight [id number] BP Diastolic BP Location Tested BP Systolic BP Type 71 107 Fetus Heart Rate Present Fetus Movement A Yes Comments labor precautions, mfm said growth wnl, +FM, precautions and education f/u one week Flowsheet Date 08/01/2024 Jones Score Blood Edema Fundus Height Fundus Units Glucose Ketones Leukocytes Nitrite Labor Signs Protein Cervic Dilation Cervic Effacement Cervic Station neg none Type Weight in lbs Pre/Post Dialysis Refused [id number] BP Diastolic BP Location Tested BP Systolic BP Type 62 114 Fetus Heart Rate Present A 155 Present Fetus Movement A Yes Comments +FM, waiting for natural lab or, education and precautions labor precautions Menstrual History Last Menstrual Date Menses Monthly On Bcp Conception Prior Menses Frequency Hcg Plus Date Menarche Onset Age 0211/14/2023 Genetic Screening And Infection History Question Response Note Mental Retardation/Autism false Patient's Age Will Be 35 Years Or Older At Estim ated Date of Delivery false Thalassemia (Kinyarwanda, Guatemalan, Mediterranean, Or Background): MCV < 80 false Neural Tube Defect (Meningomyelocele, Spina Bifi da, Or Anencephaly) false Congenital Heart Defect false Down Syndrome false Tomas-Sachs (eg, Lutheran, Cajun, [place]) f alse Ervin Disease false Sickle Cell Disease Or Trait () false Hemophilia Or Other Blood Disorders false Muscular Dystrophy false Cystic Fibrosis false Mega's Chorea false Intellectual Disability/Autism false If Yes, Was Person Tested For Fragile X? false Other Inherited Genetic Or Chromosomal Disorder false Maternal Metabolic Disorder (eg, Type 1 Diabetes , PKU) false Patient Or Baby's Father Had A Child With Defects Not Listed Above false Recurrent Loss, Or A Stillbirth false Medications (including Suppl ements, Vitamins, Herbs, OTC Drugs), Illicit/Recreational Drugs, Alcohol false If Yes, Agent(s) And Strength/Dosage false Any Other Genetic History false Live With Someone With TB Or Exposed To TB false Patient Or Partner Has History Of Genital Herpes false Rash Or Viral Illness Since Last Menstrual Perio d false History Of STD, Gonorrhea, Chlamydia, HPV, Syphi lis false Other Infection History false History of HIV false History of Hepatitis false Prior GBS-infected child false Hemoglobinopathy Or Carrier false Other Structural Defect false Recent Travel History Outside of Country false Delivery Information Delivery Date Delivery Type Labor Anesthesia Weeks Gestation Incision Type Labor Labor Length Hrs Delivered By Post Complications Tubal Sterilization [facility] Finding of growth Discharge Information Feeding Method Contraceptive Method Maternal HG B and HCT Levels
[2025-09-14 05:16] VITALS: BP 105/54; PULSE 72; RESP 18; TEMP 36.8; O2SAT 100
[2025-09-14 05:25] VITALS: BP 106/68; PULSE 97; RESP 16; O2SAT 100
[2025-09-14 05:53] LABS: BEDSIDEPREGUCG Positive (Negative)
[2025-09-14 06:01] LABS: Hematocrit 34.5 % (37.0-47.0); Hemoglobin 11.7 g/dL (12.0-15.0); Immature Granulocyte Percent A 0.3 % (0-0.5); Lymphocytes Absolute Auto 2.33 K/mm3 (0.9-3.2); Mean Corpuscular HGB Conc 33.9 g/dl (32-36); Mean Corpuscular Hemoglobin 31.3 pg (26-34); Mean Corpuscular Volume 92.2 fl (80-100); Nucleated Red Blood Cells Absolute Auto 0.000 K/mm3 (0.0-0.012); Nucleated Red Blood Cells Perc 0.0 % (0.0-0.2); Platelet Count Result 286 k/mm3 (150-375); Red Blood Count 3.74 M/mm3 (4.2-5.4); White Blood Count 7.0 K/mm3 (4.5-10.0)
[2025-09-14 06:11] LABS: Add Urine Microscopic? YES; Appearance Urine Cloudy (Clear); Glucose Urine UA Negative (Negative); Leukocyte Esterase Ur 1+ LEU/UL (Negative); Need Manual Microscopic Reviewed; Nitrate Urine Negative (Negative); Non Pathogenic Casts 0-2; Specific Grav Ur 1.021 (1.001-1.035)
[2025-09-14 06:14] LABS: Alanine Aminotransferase 14 U/L (6-35); Albumin Level 3.7 g/dL (3.5-5.1); Alkaline Phosphatase 71 U/L (38-126); Anion Gap 5 mmol/L (4-12); Aspartate Amino Transferase 24 U/L (14-36); Bilirubin,Total 0.2 mg/dL (0.2-1.3); Blood Urea Nitrogen 9 mg/dL (7-17); Calcium 8.6 mg/dL (8.4-10.2); Carbon Dioxide 25 mmol/L (22-30); Chloride 107 mmol/L (98-107); Estimated CRCL calculation 119 ml/min; Estimated Glomerular Filt Rate > 60; Glucose 93 mg/dL (65-110); Potassium 3.8 mmol/L (3.4-5.0); Sodium 137 mmol/L (137-145); Total Protein 7.0 g/dL (6.3-8.2)
[2025-09-14 06:15] LABS: INR 1.1; Partial Thromboplastin Time 32.2 Seconds (22.3-36.8); Prothrombin Time 14.2 Seconds (11.1-14.7)
--- NOTE | 2025-09-14 06:19 | ED_ITS ---
HPI - Female Genitourinary General Chief complaint: Vaginal Bleeding <Ivory Patel MD - Last Filed: 09/14/25 09:36> Stated complaint: vaginal bleeding/ <Ivory Patel MD - Last Filed: 09/14/25 09:36> Time Seen by Provider: 09/14/25 05:55 <Ivory Patel MD - Last Filed: 09/14/25 09:36> Source: patient and other (boyfriend) <Ivory Patel MD - Last Filed: 09/14/25 09:36> Mode of arrival: ambulatory <Ivory Patel MD - Last Filed: 09/14/25 09:36> Limitations: no limitations <Ivory Patel MD - Last Filed: 09/14/25 09:36> History of Present Illness HPI Narrative: 9 female presents with vaginal bleeding that started 2 days ago associated with abdominal cramping that has not stopped. Patient reports that she is although unsure of gestational age. On approximately June 28 she had a medication for voluntary termination of . After this she blood for approximately 1 week at which point stopped but she has not subsequently had a menstrual cycle since so she is unaware of her last menstrual period. She reports that she has been passing clots and has a headache. Has had dark red blood as well as foul smelling. She has not established with an OB Gyne for this but she took a test the week of August at home. Denies having a OB Gyne in general. Has not had confirmation of an intrauterine . She has not undergone ultrasound or beta-hCG testing. She has taken no medications prior to arrival. She reports that she is changing her maxi pad approximately every 3 hours. Once she states that was saturated but other times she changes it for hygienic purposes. < Ivory Patel MD - Last Filed: 09/14/25 09:36> Related Data Home medications: Home Medications ?Medication ?Instructions ?Recorded ?Confirmed ?Last Taken ?Type vit no.95-ferrous 1 tablet PO DAILY 08/04/24 09/16/24 08/03/24 History fumarate 28 mg-folic acid 800 mcg 1 t ablet tablet () ferrous sulfate 325 mg (65 mg 325 mg PO DAILY 09/16/24 09/16/24 Unknown History iron) tablet (FeroSul) metronidazole 500 mg tablet 500 mg PO Q12H 09/16/24 Unknown History <Ivory Patel MD - Last Filed: 09/14/25 09:36> Allergies/Adverse reactions: Allergies Allergy/AdvReac Type Severity Reaction Status Date / Time No Known Allergies Allergy Verified 09/14/25 05:10 <Ivory Patel MD - Last Filed: 09/14/25 09:36> PMFSH Past Medical History Medical History: Medical History Termination of June 2025 Obesity No active medical problems <Ivory Patel MD - Last Filed: 09/14/25 09:36> Family History Family History: Family History Other No pertinent family history <Ivory Patel MD - Last Filed: 09/14/25 09:36> Social History Social History: Social History Smoking status: Never smoker Second hand tobacco smoke exposure: No Substance use: never Lack of Transportation: No Lack of Food: Never True Current Housing: I Have Housing Concerned About Future Housing: No Difficulty Paying Gas/Electric Bills: No Difficulty Paying for Meds: No Currently Unemployed: No Education: High School Diploma/GED Difficulty w/ Childcare or Family Care: No Spiritual care concerns: No <Ivory Patel MD - Last Filed: 09/14/25 09:36> Exam 2 Narrative: GENERAL: Well-appearing, well-nourished, and in no acute distress. HEAD: Normocephalic, atraumatic. EYES: Non injected, non icteric ENT: Nares clear, no rhinorrhea or epistaxis. Gross auditory acuity intact. NECK: Supple. No meningismus. CHEST: Speaking in full sentences. No respiratory distress. HEART: Regular rate and rhythm. . ABDOMEN: Soft, nondistended. No rigidity or guarding. Not peritoneal. No tenderness to palpation throughout. EXTREMITIES: Normal range of motion. No lower extremity edema. SKIN: Warm, dry, no rash. NEURO: No focal deficits. Alert and oriented. Answering questions. Following commands. Normal speech without aphasia or dysarthria. PSYCH: Normal mood and affect. <Ivory aPtel MD - Last Filed: 09/14/25 09:36> Course Vital Signs Vital signs: Vital Signs Temperature 36.8 C 09/14/25 05:16 Pulse Rate 72 09/14/25 05:16 Respiratory Rate 18 09/14/25 05:16 Blood Pressure 105/54 L 09/14/25 05:16 Pulse Oximetry 100 09/14/25 05:16 Oxygen Delivery Room Air 09/14/25 05:16 Temperature 36.8 C 09/14/25 05:16 Pulse Rate 69 09/14/25 07:53 Respiratory Rate 20 09/14/25 07:53 Blood Pressure 97/63 L 09/14/25 07:53 Pulse Oximetry 100 09/14/25 07:53 Oxygen Delivery Room Air 09/14/25 05:25 <Ivory Patel MD - Last Filed: 09/14/25 09:36> Vital Signs Temperature 36.8 C 09/14/25 05:16 Pulse Rate 72 09/14/25 05:16 Respiratory Rate 18 09/14/25 05:16 Blood Pressure 105/54 L 09/14/25 05:16 Pulse Oximetry 100 09/14/25 05:16 Oxygen Delivery Room Air 09/14/25 05:16 Temperature 36.8 C 09/14/25 05:16 Pulse Rate 69 09/14/25 07:53 Respiratory Rate 20 09/14/25 07:53 Blood Pressure 97/63 L 09/14/25 07:53 Pulse Oximetry 100 09/14/25 07:53 Oxygen Delivery Room Air 09/14/25 05:25 <Isidro Jung MD - Last Filed: 09/14/25 10:52> MDM MDM Narrative Medical decision making narrative: This patient is a 20 yo G 3 P 1011 female who comes to the emergency department with vaginal bleeding. In the emergency department she is afebrile with vital signs notable for hypotension given diastolic blood pressures 54. However mean arterial pressure is 71 mm Hg and repeat assessment shows improvement without interval intervention. Urine test positive. Beta hcg >7685. Normocytic anemia, stable from previous in fact improved. Acetaminophen ordered. UA with RBC/blood but without bacteriuria. A urine culture does reflex however. Patient signed out to ED attending pending interpretation of US. Per review of EMR, patient had previously seen Dr Rivas / Ivory Collins although she has not established with an ObGYn for this and denied having an OBGyn. < Ivory Patel MD - Last Filed: 09/14/25 09:36> Differential Diagnosis Differential Diagnosis: , spectrum of miscarriage, ectopic <Ivory Patel MD - Last Filed: 09/14/25 09:36> Medical Records I have reviewed the following patient records and this information was taken into consideration when formulating the assessment and plan.: previous labs <Ivory Patel MD - Last Filed: 09/14/25 09:36> Lab Data MDM Lab Attestation statement: I personally reviewed the patient's lab results. <Ivory Patel MD - Last Filed: 09/14/25 09:36> Result diagrams: 09/14/25 05:54 09/14/25 05:54 <Ivory Patel MD - Last Filed: 09/14/25 09:36> Labs: Lab Results 09/14/25 09/14/25 09/14/25 Range/Units 05:52 05:53 05:54 WBC 7.0 (4.5-10.0) K/mm3 RBC 3.74 L (4.2-5.4) M/mm3 Hgb 11.7 L (12.0-15.0) g/dL Hct 34.5 L (37.0-47.0) % MCV 92.2 (80-100) fl MCH 31.3 (26-34) pg MCHC 33.9 (32-36) g/dl RDW 12.9 (11.5-14.5) % Plt Count 286 (150-375) k/mm3 MPV 9.8 (7.4-10.4) fl Immature Gran % (Auto) 0.3 (0-0.5) % Neut % (Auto) 56.9 (45.5-73.1) % Lymph % (Auto) 33.3 (18.3-44.2) % [place] % (Auto) 6.4 (2.6-8.5) % Eos % (Auto) 2.4 (0-4.4) % Baso % (Auto) 0.7 (0.2-1.2) % Lymph # (Auto) 2.33 (0.9-3.2) K/mm3 [place] # (Auto) 0.5 (0.1-0.6) K/mm3 Eos # (Auto) 0.2 (0-0.3) K/mm3 Baso # (Auto) 0.1 (0.0-0.1) K/mm3 Abs Immat Gran (auto) 0.02 (0.00-0.031) K/mm3 Absolute Neuts (auto) 4.0 (1.3-6.7) K/mm3 Absolute Nucleated RBC 0.000 (0.0-0.012) K/mm3 Nucleated RBC % 0.0 (0.0-0.2) % PT 14.2 (11.1-14.7) Seconds INR 1.1 APTT 32.2 (22.3-36.8) Seconds Sodium 137 (137-145) mmol/L Potassium 3.8 (3.4-5.0) mmol/L Chloride 107 (98-107) mmol/L Carbon Dioxide 25 (22-30) mmol/L Anion Gap 5 (4-12) mmol/L BUN 9 D (7-17) mg/dL Creatinine 0.60 L (0.7-1.0) mg/dL Estim Creat Clear Calc 119 ml/min Estimated GFR > 60 (59 - ) Glucose 93 (65-110) mg/dL Calcium 8.6 (8.4-10.2) mg/dL Total Bilirubin 0.2 (0.2-1.3) mg/dL AST 24 (14-36) U/L ALT 14 (6-35) U/L Alkaline Phosphatase 71 (38-126) U/L Total Protein 7.0 (6.3-8.2) g/dL Albumin 3.7 (3.5-5.1) g/dL Beta HCG, Quant 7685.80 mIU/ML Urine Color [place] H (Yellow) Urine Appearance Cloudy H (Clear) Urine pH 5.5 (5.0-9.0) Ur Specific Oral 1.021 (1.001-1.035) Urine Protein 1+ H (Negative) mg/dL Urine Glucose (UA) Negative (Negative) mg/dL Urine Ketones Trace H (Negative) mg/dL Ur Blood (Man) 3+ H (Negative) Urine Nitrate Negative (Negative) Urine Bilirubin Negative (Negative) Urine Urobilinogen 1.0 (<2.0) mg/dL Add Ur Microanalysis Reviewed Leukocyte Esterase Rfl 1+ H (Negative) BOB/UL Urine RBC >100 H (0-2) /hpf Urine WBC 0-5 (0-3) /hpf Ur Squamous Epith Cells Occasional (Few) /hpf Urine Bacteria None seen /hpf Urine Casts 0-2 POC Urine HCG, Qual Positive (Negative) <Ivory Patel MD - Last Filed: 09/14/25 09:36> Lab Results 09/14/25 09/14/25 09/14/25 Range/Units 05:52 05:53 05:54 WBC 7.0 (4.5-10.0) K/mm3 RBC 3.74 L (4.2-5.4) M/mm3 Hgb 11.7 L (12.0-15.0) g/dL Hct 34.5 L (37.0-47.0) % MCV 92.2 (80-100) fl MCH 31.3 (26-34) pg MCHC 33.9 (32-36) g/dl RDW 12.9 (11.5-14.5) % Plt Count 286 (150-375) k/mm3 MPV 9.8 (7.4-10.4) fl Immature Gran % (Auto) 0.3 (0-0.5) % Neut % (Auto) 56.9 (45.5-73.1) % Lymph % (Auto) 33.3 (18.3-44.2) % [place] % (Auto) 6.4 (2.6-8.5) % Eos % (Auto) 2.4 (0-4.4) % Baso % (Auto) 0.7 (0.2-1.2) % Lymph # (Auto) 2.33 (0.9-3.2) K/mm3 [place] # (Auto) 0.5 (0.1-0.6) K/mm3 Eos # (Auto) 0.2 (0-0.3) K/mm3 Baso # (Auto) 0.1 (0.0-0.1) K/mm3 Abs Immat Gran (auto) 0.02 (0.00-0.031) K/mm3 Absolute Neuts (auto) 4.0 (1.3-6.7) K/mm3 Absolute Nucleated RBC 0.000 (0.0-0.012) K/mm3 Nucleated RBC % 0.0 (0.0-0.2) % PT 14.2 (11.1-14.7) Seconds INR 1.1 APTT 32.2 (22.3-36.8) Seconds Sodium 137 (137-145) mmol/L Potassium 3.8 (3.4-5.0) mmol/L Chloride 107 (98-107) mmol/L Carbon Dioxide 25 (22-30) mmol/L Anion Gap 5 (4-12) mmol/L BUN 9 D (7-17) mg/dL Creatinine 0.60 L (0.7-1.0) mg/dL Estim Creat Clear Calc 119 ml/min Estimated GFR > 60 (59 - ) Glucose 93 (65-110) mg/dL Calcium 8.6 (8.4-10.2) mg/dL Total Bilirubin 0.2 (0.2-1.3) mg/dL AST 24 (14-36) U/L ALT 14 (6-35) U/L Alkaline Phosphatase 71 (38-126) U/L Total Protein 7.0 (6.3-8.2) g/dL Albumin 3.7 (3.5-5.1) g/dL Beta HCG, Quant 7685.80 mIU/ML Urine Color [place] H (Yellow) Urine Appearance Cloudy H (Clear) Urine pH 5.5 (5.0-9.0) Ur Specific Oral 1.021 (1.001-1.035) Urine Protein 1+ H (Negative) mg/dL Urine Glucose (UA) Negative (Negative) mg/dL Urine Ketones Trace H (Negative) mg/dL Ur Blood (Man) 3+ H (Negative) Urine Nitrate Negative (Negative) Urine Bilirubin Negative (Negative) Urine Urobilinogen 1.0 (<2.0) mg/dL Add Ur Microanalysis Reviewed Leukocyte Esterase Rfl 1+ H (Negative) BOB/UL Urine RBC >100 H (0-2) /hpf Urine WBC 0-5 (0-3) /hpf Ur Squamous Epith Cells Occasional (Few) /hpf Urine Bacteria None seen /hpf Urine Casts 0-2 POC Urine HCG, Qual Positive (Negative) <Isidro Jung MD - Last Filed: 09/14/25 10:52> Imaging Data Attestation: I personally reviewed and interpreted this imaging study as follows: < Ivory Patel MD - Last Filed: 09/14/25 09:36> My impression: Mixed heterogenicity of structures on my independent interpretation of US <Ivory Patel MD - Last Filed: 09/14/25 09:36> Radiologist's impression: Pelvic ultrasound showed Thickened, heterogenous endometrium measuring approximately 1.3 cm, which is nonspecific In the setting of pelvic pain and vaginal bleeding, and with possible , finding may represent early intrauterine , failed intrauterine , or a retained blood/products. No definite intrauterine distress not sick is identified on this examination < Isidro Jung MD - Last Filed: 09/14/25 10:52> Discharge Plan Discharge Clinical Impression: Normocytic anemia, Positive blood test, , threatened <Ivory Patel MD - Last Filed: 09/14/25 09:36> Patient Disposition: Still a Patient <Ivory Patel MD - Last Filed: 09/14/25 09:36> Condition: Stable <Ivory Patel MD - Last Filed: 09/14/25 09:36> Instructions: Threatened Miscarriage (ED) <Ivory Patel MD - Last Filed: 09/14/25 09:36> Additional Instructions: The name of an ObGyn is listed below (the tourist information assistant ObGyn today as well as the OBGyn and nurse department coordinator you had previously seen. <Ivory Patel MD - Last Filed: 09/14/25 09:36> Patient Language: Divehi <Ivory Patel MD - Last Filed: 09/14/25 09:36> Prescriptions: No Action ferrous sulfate [FeroSul] 325 mg (65 mg iron) tablet 325 mg PO DAILY metronidazole 500 mg tablet 500 mg PO Q12H valacyclovir [Valtrex] 1 gram tablet 1,000 mg PO Q12H Qty: 20 0RF valacyclovir [Valtrex] 1 gram tablet 1,000 mg PO Q12H Qty: 20 0RF PNV no.95-ferrous fumarate-FA [] 28 mg iron- 800 mcg Tablet 1 tablet PO DAILY ibuprofen 600 mg Tablet 600 mg PO Q6H PRN (Reason: Cramping) Qty: 30 0RF <Ivory Patel MD - Last Filed: 09/14/25 09:36> Follow-up/Referrals: Alhaji Rivas MD [Physician, EMERGENCY MAN] Referral Note: previously seen by this OBGyn Kyung Ann MD [Physician, EMERGENCY MAN] Referral Note: ObGyn tourist information assistant today PHYSICIAN,TIMBER HAND [Primary Care Provider, Internal Medicine] Ivory Collins CNM [Certified Nurse Sample Shoe Inspector And Reworker, EMERGENCY MAN] Referral Note: previously seen by this Certified Nurse Sample Shoe Inspector And Reworker <Ivory Patel MD - Last Filed: 09/14/25 09:36> Stand Alone Forms: Work/School Release IP <Ivory Patel MD - Last Filed: 09/14/25 09:36>
--- NOTE | 2025-09-14 07:22 | PC.NURSE ---
Assumed pt care.
[2025-09-14] MEDS: ACETAMINOPHEN 500 MG TABLET 1000 MG PO (07:50)
[2025-09-14 07:53] VITALS: BP 97/63; PULSE 69; RESP 20; O2SAT 100
[2025-09-14 11:30] VITALS: BP 105/76; PULSE 65; RESP 18; O2SAT 100
== END 2025-09-14 11:34 | disposition home or self-care (01) ==
PROVIDERS: Student in an Organized Health Care Education/Training Program; Emergency Provider Emergency Medicine
DX: O20.0 Threatened abortion (principal); O99.011 Anemia complicating pregnancy, first trimester; D64.9 Anemia, unspecified; O99.211 Obesity complicating pregnancy, first trimester; E66.9 Obesity, unspecified; Z3A.01 Less than 8 weeks gestation of pregnancy
CPT/HCPCS: 36415; 76801; 76817; 80053; 81001; 81025; 84702; 85025; 85610; 85730; 87086; 99284; A9270